=== PATIENT | male | born 1945 | race Caucasian/White ===

== ENCOUNTER 2020-09-27 21:34 | Emergency (ER) | payer MEDICARE, OTHER ==
[~2020-09-27 21:34] MED LIST: Iopamidol 370 76% 100 ML VIAL ONE
[2020-09-27] MEDS ORDERED: Ondansetron PF 4 MG/2 ML Vial ONE (22:14)
[2020-09-27] MEDS ORDERED: Morphine 4 MG/ML VIAL ONE (22:14)
[2020-09-27 22:38] LABS: Hemoglobin 15.3 g/dL (14.0-18.0); Mean Corpuscular HGB CONC 33.4 g/dL (32.0-36.0); Mean Corpuscular Hemoglobin 34.6 pg (27.0-31.0); Mean Platelet Volume 6.5 fL (7.4-10.4); Platelet Count 271 thou/uL (130-400); RBC Distribution Width 13.1 % (11.5-14.5); Red Blood Cell (RBC) Count 4.41 mill/uL (4.70-6.10); White Blood Cell (WBC) Count 8.2 thou/uL (4.8-10.8)
[2020-09-27 22:44] LABS: ALT (SGPT) 11 U/L (8-55); AST (SGOT) 19 U/L (5-34); Albumin 4.2 g/dL (3.4-4.8); Alkaline Phosphatase 71 U/L (40-110); Anion Gap 16 mmol/L (10-20); BUN (Urea Nitrogen) 18 mg/dL (8.4-25.7); Bilirubin, Total 0.2 mg/dL (0.2-1.2); CK (CPK) 77 U/L (30-200); Calc. Creatinine Clearance 0 mL/min (70-130); Calcium 8.8 mg/dL (7.8-10.44); Carbon Dioxide 24 mmol/L (23-31); Chloride 106 mmol/L (98-107); Globulin 3.9 g/dL (2.4-3.5); Glucose 79 mg/dL (83-110); Potassium 3.9 mmol/L (3.5-5.1); Protein, Total 8.1 g/dL (5.8-8.1); Sodium 142 mmol/L (136-145)
[2020-09-27] MEDS ORDERED: Aspirin Chewable 81 MG TAB ONE (23:07)
[2020-09-27 23:21] LABS: #Basophils 0.1 thou/uL (0.0-0.2); #Eosinphils 0.5 thou/uL (0.0-0.7); #Lymphocytes 2.5 thou/uL (1.20-3.40); #Monocytes 0.6 thou/uL (0.11-0.59); #Neutrophils 4.5 thou/uL (1.40-6.50); %Basophils 1.6 % (0.0-1.0); %Eosinophils 5.7 % (0.0-10.0); %Monocytes 7.6 % (0.0-10.0); %Neutrophils 54.2 % (42.0-75.0); MDiff Complete? YES; Macrocytosis SLIGHT = 6-15 cells (100X) (0-5/hpf); Platelet Morphology Comment Appears Adequate
[2020-09-27] MEDS ORDERED: Fentanyl 100 MCG/2 ML VIAL ONE (23:52)
== END 2020-09-28 00:07 | disposition short-term general hospital (02) ==
LOC: BURERS 21:34
DX: R07.89 Other chest pain (principal); M79.89 Other specified soft tissue disorders; I10 Essential (primary) hypertension; E78.5 Hyperlipidemia, unspecified; F17.290 Nicotine dependence, other tobacco product, uncomplicated; Z79.82 Long term (current) use of aspirin; Z79.899 Other long term (current) drug therapy
CPT/HCPCS: 71275; 80053; 82550; 84484; 85025; 85379; 93005; 96374; 96375; J2270; J2405; J3010; Q9967

== ENCOUNTER 2021-02-12 21:01 | Emergency (ER) | payer MEDICARE, OTHER ==
[2021-02-12 21:48] LABS: #Basophils 0.1 thou/uL (0.0-0.2); #Eosinphils 0.4 thou/uL (0.0-0.7); #Lymphocytes 1.6 thou/uL (1.20-3.40); #Monocytes 0.8 thou/uL (0.11-0.59); #Neutrophils 5.1 thou/uL (1.40-6.50); %Basophils 1.4 % (0.0-1.0); %Eosinophils 4.5 % (0.0-10.0); %Lymphocytes 20.4 % (21.0-51.0); %Monocytes 10.3 % (0.0-10.0); %Neutrophils 63.5 % (42.0-75.0); Hemoglobin 14.6 g/dL (14.0-18.0); Mean Corpuscular HGB CONC 34.5 g/dL (32.0-36.0); Mean Corpuscular Hemoglobin 35.7 pg (27.0-31.0); Platelet Count 300 thou/uL (130-400); Platelet Morphology Comment Appears Adequate; RBC Distribution Width 11.6 % (11.5-14.5); RBC Morphology Normal; Red Blood Cell (RBC) Count 4.08 mill/uL (4.70-6.10)
[2021-02-12 21:51] LABS: Prothrombin Time 13.3 sec (12.0-14.7)
[2021-02-12 21:52] LABS: PTT 33.1 sec (22.9-36.1)
[2021-02-12 22:05] LABS: ALT (SGPT) 13 U/L (8-55); AST (SGOT) 17 U/L (5-34); Albumin 4.1 g/dL (3.4-4.8); Alcohol 15 mg/dL (Less than 10); Alkaline Phosphatase 86 U/L (40-110); Anion Gap 18 mmol/L (10-20); BUN (Urea Nitrogen) 15 mg/dL (8.4-25.7); Bilirubin, Total 0.4 mg/dL (0.2-1.2); CK (CPK) 75 U/L (30-200); Calc. Creatinine Clearance 0 mL/min (70-130); Calcium 9.4 mg/dL (7.8-10.44); Carbon Dioxide 24 mmol/L (23-31); Chloride 104 mmol/L (98-107); Globulin 4.1 g/dL (2.4-3.5); Glucose 99 mg/dL (83-110); Potassium 3.9 mmol/L (3.5-5.1); Protein, Total 8.2 g/dL (5.8-8.1); Sodium 142 mmol/L (136-145)
== END 2021-02-12 22:35 | disposition home or self-care (01) ==
LOC: BURERS 21:01
DX: R55 Syncope and collapse (principal); I10 Essential (primary) hypertension; E78.5 Hyperlipidemia, unspecified; F17.210 Nicotine dependence, cigarettes, uncomplicated; Z79.82 Long term (current) use of aspirin; Z79.899 Other long term (current) drug therapy
CPT/HCPCS: 36415; 71045; 80053; 80307; 82550; 83880; 84484; 85025; 85610; 85730; 93005; 94760

== ENCOUNTER 2024-04-21 17:03 | Emergency (ER) | payer OTHER ==
[2024-04-21 17:43] LABS: #Basophils 0.1 thou/uL (0.0-0.2); #Eosinophils 0.2 thou/uL (0.0-0.7); #Lymphocytes 1.5 thou/uL (1.20-3.40); #Monocytes 0.6 thou/uL (0.11-0.59); %Basophils 0.9 % (0.0-1.0); %Eosinophils 2.6 % (0.0-10.0); %Lymphocytes 19.9 % (21.0-51.0); %Monocytes 8.4 % (0.0-10.0); %Neutrophils 68.2 % (42.0-75.0); Hemoglobin 13.2 g/dL (14.0-18.0); Mean Corpuscular HGB CONC 33.7 g/dL (32.0-36.0); Mean Corpuscular Hemoglobin 32.6 pg (27.0-31.0); Mean Corpuscular Volume 96.6 fl (78.0-98.0); Mean Platelet Volume 6.3 fL (7.4-10.4); Platelet Count 263 10x3/uL (130-400); Red Blood Cell (RBC) Count 4.04 mill/uL (4.70-6.10); White Blood Cell (WBC) Count 7.4 10x3/uL (4.8-10.8)
[2024-04-21 18:00] LABS: ALT (SGPT) 44 U/L (8-55); AST (SGOT) 31 U/L (5-34); Albumin 3.9 g/dL (3.4-4.8); Alkaline Phosphatase 65 U/L (40-110); Anion Gap 11 mmol/L (10-20); BUN (Urea Nitrogen) 26 mg/dL (8.4-25.7); Bilirubin, Total 0.4 mg/dL (0.2-1.2); Calc. Creatinine Clearance 0 mL/min (70-130); Calcium 9.7 mg/dL (7.8-10.44); Carbon Dioxide 27 mmol/L (23-31); Chloride 108 mmol/L (98-107); Estimated GFR 50; Glucose 116 mg/dL (83-110); Protein, Total 7.9 g/dL (5.8-8.1); Sodium 142 mmol/L (136-145)
[2024-04-21 18:03] LABS: D-Dimer Test 0.56 mcg/mL (0.27-0.43); PTT 30.8 sec (22.9-36.1)
== END 2024-04-21 18:50 | disposition home or self-care (01) ==
LOC: BURERS 17:03
DX: M25.562 Pain in left knee (principal); I10 Essential (primary) hypertension; I25.2 Old myocardial infarction; F17.210 Nicotine dependence, cigarettes, uncomplicated; Z55.6 Problems related to health literacy; Z95.5 Presence of coronary angioplasty implant and graft
CPT/HCPCS: 36415; 80053; 85025; 85379; 85610; 85730; 99283